=== PATIENT | female | born 1975 | race Hispanic/Latino ===

== ENCOUNTER 2018-02-28 09:52 | Outpatient (CLI) | payer MEDICAID ==
--- NOTE | 2018-02-28 11:51 | ULT ---
RIGHT BREAST ULTRASOUND: Comparison: Mammogram 02-28-18 History: 42-year-old female with palpable mass at the 6 o'clock position of the right breast. Patient reports recently feeling this breast mass. She reports having a family member with a diagnosis of br east cancer. Patient also reports have a previous sebaceous cyst more laterally in the right breast n ear the inframamillary fold. Technique: Multicolor grayscale and color doppler images were obtained in a targeted ultrasound of th e right breast. FINDINGS: At the 6 o'clock position of the right breast in the inframamillary fold approximately 9 cm from the nipple, there is a well circumscribed hypoechoic mass with increased through transmission. Within thi s mass there are increased echoes. This could represent debris or this could represent a solid mass. No definite tract is seen extending to the skin surface during this examination. IMPRESSION: 1. The mass in the right breast most likely represents a sebaceous cyst. However, greater than 98% ce rtainty cannot be given based off the more solid appearance of this and without a tract extending to the skin surface. Therefore, the patient was given the option of short interval follow up or biopsy t o evaluate this mass. She desired a biopsy of the mass. 2. BIRADS category 4 - suspicious abnormality. An ultrasound guided biopsy is recommended. This was d iscussed with the patient at time of ultrasound and with the patient's ordering clinician at 11:07 a. m. on 02-28-18. POS: HERMINIA
== END 2018-02-28 09:53 | disposition home or self-care (01) ==
LOC: BICMAMMO 09:52
PROVIDERS: ATTEND Advanced Practice Midwife
DX: N63.14 Unspecified lump in the right breast, lower inner quadrant (principal)
CPT/HCPCS: 77066; G0279

== ENCOUNTER → 2018-03-08 | Day surgery (SDC) | payer MEDICAID ==
--- NOTE | 2018-03-08 14:07 | ULT ---
FOCUSED ULTRSOUND RIGHT BREAST LIMITED: Date: 03-08-18 Comparison: 02-28-18 History: Subcutaneous palpable abnormality of inferior right breast. FINDINGS: The patient reported for biopsy of a palpable abnormality just deep to the subcutaneous fat on the ri ght at the 12 o'clock position. The preprocedural imaging, however, demonstrates the hypoechoic lesio n to have decreased significantly in size and now demonstrates a more ill-defined nature. It is curre ntly measuring in the 7 x 4 x 3 mm range where it previously measured in the 10 x 8 x 8 mm range. Giv en its interval decrease in size, a biopsy was not performed upon consolation with the patient. Inste ad, a 6 month follow up ultrasound of the right breast is recommended. IMPRESSION: BIRADS 3 - probably benign findings. This lesion is felt to most likely represent a sebaceous cyst an d thus follow up ultrasound is 6 months is advised. POS: OFF
== END ==
LOC: BICULT 12:38
PROVIDERS: ATTEND Advanced Practice Midwife
DX: N64.89 Other specified disorders of breast (principal)

== ENCOUNTER 2019-10-24 07:39 | Emergency (ER) | payer MEDICAID, OTHER, SELFPAY ==
[2019-10-24] MEDS ORDERED: Ketorolac Tromethamine 30 MG/ML VIAL ONE (08:27)
== END 2019-10-24 09:25 | disposition home or self-care (01) ==
LOC: ERS 07:39
DX: S39.012A Strain of muscle, fascia and tendon of lower back, initial encounter (principal); X50.0XXA Overexertion from strenuous movement or load, initial encounter
CPT/HCPCS: 96372; 99283; J1885

== ENCOUNTER 2021-03-20 22:23 | Emergency (ER) | payer SELFPAY ==
[2021-03-21 12:16] LABS: SARS-CoV-2 PCR by NAA DETECTED (NotDetected)
== END 2021-03-21 01:29 | disposition home or self-care (01) ==
LOC: ERS 22:23
DX: U07.1 COVID-19 (principal)
CPT/HCPCS: 71045; U0003; U0005

== ENCOUNTER 2021-12-13 11:24 | Emergency (ER) | payer OTHER ==
[~2021-12-13 11:24] MED LIST: Iopamidol-370 76% 500 ML 1 ML ONE
[2021-12-13 12:43] LABS: #Basophils 0.1 thou/uL (0.0-0.2); #Eosinphils 0.2 thou/uL (0.0-0.7); #Lymphocytes 2.6 thou/uL (1.20-3.40); #Monocytes 0.8 thou/uL (0.11-0.59); #Neutrophils 7.4 thou/uL (1.40-6.50); %Basophils 0.8 % (0.0-1.0); %Eosinophils 1.8 % (0.0-10.0); %Lymphocytes 23.7 % (21.0-51.0); %Monocytes 6.7 % (0.0-10.0); %Neutrophils 66.9 % (42.0-75.0); Hemoglobin 13.5 g/dL (12.0-16.0); Mean Corpuscular HGB CONC 33.1 g/dL (32.0-36.0); Mean Corpuscular Hemoglobin 30.1 pg (27.0-31.0); Mean Corpuscular Volume 91.2 fL (78.0-98.0); Mean Platelet Volume 8.3 fL (7.4-10.4); Platelet Count 245 thou/uL (130-400); Red Blood Cell (RBC) Count 4.49 mill/uL (4.20-5.40); White Blood Cell (WBC) Count 11.1 thou/uL (4.8-10.8)
[2021-12-13 13:09] LABS: ALT (SGPT) 50 U/L (8-55); AST (SGOT) 58 U/L (5-34); Albumin 4.2 g/dL (3.5-5.0); Alkaline Phosphatase 81 U/L (40-110); Anion Gap 12 mmol/L (10-20); BUN (Urea Nitrogen) 11 mg/dL (7.0-18.7); Bilirubin, Total 0.3 mg/dL (0.2-1.2); Calc. Creatinine Clearance 0 mL/min (70-130); Calcium 9.5 mg/dL (7.8-10.44); Carbon Dioxide 25 mmol/L (22-29); Chloride 102 mmol/L (98-107); Estimated GFR 101; Globulin 4.4 g/dL (2.4-3.5); Glucose 116 mg/dL (70-105); Lipase 15 U/L (8-78); Potassium 3.8 mmol/L (3.5-5.1); Protein, Total 8.6 g/dL (6.0-8.3); Sodium 135 mmol/L (136-145)
[2021-12-13 13:44] LABS: BHCG - Serum Negative (NEGATIVE); Pregs Control Background? CLEAR/WHITE (CLR/WHITE); Pregs Control Bar Appear? YES (CONTROL BAR)
[2021-12-13 15:37] LABS: Bacteria/HPF 4+ HPF (None Seen); Bilirubin Negative (Negative); Blood, Urine Negative (Negative); Clarity Turbid (Clear); Glucose, Urine (Dipstick) Normal (Negative); Ketone, Urine Negative (Negative); Leukocyte 500 Leu/uL (Negative); Nitrite Negative (Negative); Protein, Urine (Dipstick) Negative (Neg-Trace); RBC/HPF 0-3 HPF (0-3); WBC/HPF 0-3 HPF (0-3); pH, Urine 6.5 (5.0-9.0)
== END 2021-12-13 16:30 | disposition home or self-care (01) ==
LOC: ERS 11:24
DX: K43.9 Ventral hernia without obstruction or gangrene (principal)
CPT/HCPCS: 36415; 74177; 80053; 81003; 81015; 83690; 84703; 85025; Q9967

== ENCOUNTER 2022-03-30 09:32 | Emergency (ER) | payer OTHER ==
[2022-03-30 10:08] LABS: #Eosinphils 0.1 thou/uL (0.0-0.7); #Lymphocytes 2.4 thou/uL (1.20-3.40); #Monocytes 0.6 thou/uL (0.11-0.59); #Neutrophils 5.6 thou/uL (1.40-6.50); %Basophils 0.5 % (0.0-1.0); %Eosinophils 1.2 % (0.0-10.0); %Lymphocytes 27.6 % (21.0-51.0); %Monocytes 7.2 % (0.0-10.0); %Neutrophils 63.5 % (42.0-75.0); Hemoglobin 13.1 g/dL (12.0-16.0); Mean Corpuscular HGB CONC 33.2 g/dL (32.0-36.0); Mean Corpuscular Hemoglobin 29.6 pg (27.0-31.0); Mean Corpuscular Volume 89.1 fl (78.0-98.0); Mean Platelet Volume 8.1 fL (7.4-10.4); Platelet Count 252 10x3/uL (130-400); RBC Distribution Width 12.4 % (11.5-14.5); Red Blood Cell (RBC) Count 4.43 mill/uL (4.20-5.40); White Blood Cell (WBC) Count 8.9 10x3/uL (4.8-10.8)
[2022-03-30 10:33] LABS: ALT (SGPT) 58 U/L (8-55); AST (SGOT) 64 U/L (5-34); Albumin 4.3 g/dL (3.5-5.0); Alkaline Phosphatase 71 U/L (40-110); Anion Gap 11 mmol/L (10-20); BUN (Urea Nitrogen) 9 mg/dL (7.0-18.7); Bilirubin, Total 0.6 mg/dL (0.2-1.2); Calc. Creatinine Clearance 0 mL/min (70-130); Calcium 9.4 mg/dL (7.8-10.44); Carbon Dioxide 26 mmol/L (22-29); Chloride 102 mmol/L (98-107); Estimated GFR 111; Globulin 3.8 g/dL (2.4-3.5); Glucose 107 mg/dL (70-105); Potassium 4.1 mmol/L (3.5-5.1); Protein, Total 8.1 g/dL (6.0-8.3); Sodium 135 mmol/L (136-145)
[2022-03-30] MEDS ORDERED: Morphine 4 MG/ML VIAL ONE (11:39)
[2022-03-30] MEDS ORDERED: Ondansetron PF 4 MG/2 ML Vial ONE (11:39)
[2022-03-30 13:24] LABS: Bacteria/HPF 2+ HPF (None Seen); Bilirubin Negative (Negative); Blood, Urine Negative (Negative); Clarity Clear (Clear); Glucose, Urine (Dipstick) Normal (Negative); Ketone, Urine 20 mg/dL (Negative); Leukocyte 75 Leu/uL (Negative); Nitrite 2+ (Negative); Protein, Urine (Dipstick) Negative (Neg-Trace); RBC/HPF 0-3 HPF (0-3); Specific Gravity, Urine 1.025 (1.002-1.036); Urobilinogen Normal mg/dL (Less than 2)
== END 2022-03-30 13:21 | disposition home or self-care (01) ==
LOC: ERS 09:32
DX: K43.9 Ventral hernia without obstruction or gangrene (principal)
CPT/HCPCS: 36415; 74177; 80053; 81003; 81015; 83605; 83690; 84484; 84702; 85025; 87077; 87086; 87186; 96361; 96374; 96375; J2270; J2405; Q9967

== ENCOUNTER 2022-04-19 13:13 | Outpatient (CLI) | payer OTHER ==
[2022-04-19 14:23] LABS: #Eosinphils 0.2 10x3/uL (0.0-0.5); #Monocytes 0.6 10x3/uL (0.0-1.1); #Neutrophils 5.9 10x3/uL (1.5-8.4); %Basophils 0.2 % (0.0-2.0); %Eosinophils 1.7 % (0.0-6.0); %Lymphocytes 25.5 % (18.0-47.0); %Monocytes 6.6 % (0.0-10.0); %Neutrophils 65.8 % (40.0-75.0); Hemoglobin 11.8 g/dL (12.0-15.5); Mean Corpuscular HGB CONC 32.8 g/dL (32.0-36.0); Mean Corpuscular Hemoglobin 28.8 pg (27.0-33.0); Mean Corpuscular Volume 87.8 fl (81.6-98.3); Mean Platelet Volume 10.7 fl (7.4-10.4); Platelet Count 239 10x3/uL (150-450); RBC Distribution Width 13.4 % (11.5-14.5)
[2022-04-19 14:37] LABS: Anion Gap 13 mmol/L (10-20); BUN (Urea Nitrogen) 14 mg/dL (7.0-18.7); Calc. Creatinine Clearance 0 mL/min (70-130); Calcium 8.8 mg/dL (7.8-10.44); Carbon Dioxide 24 mmol/L (22-29); Chloride 108 mmol/L (98-107); Estimated GFR 106; Glucose 93 mg/dL (70-105); Potassium 3.5 mmol/L (3.5-5.1); Sodium 141 mmol/L (136-145)
[2022-04-19 14:43] LABS: BHCG - Serum Negative (NEGATIVE); Pregs Control Background? CLEAR/WHITE (CLR/WHITE); Pregs Control Bar Appear? YES (CONTROL BAR)
== END 2022-04-19 13:14 | disposition home or self-care (01) ==
LOC: LABBT 13:13
PROVIDERS: ATTEND Specialist
DX: Z01.812 Encounter for preprocedural laboratory examination (principal); K43.2 Incisional hernia without obstruction or gangrene
CPT/HCPCS: 80048; 84703; 85025

== ENCOUNTER 2022-04-21 08:08 | Day surgery (SDC) | payer OTHER ==
[2022-04-19 11:07] VITALS: BMI 48.6
[2022-04-21] MEDS ORDERED: Acetaminophen 500 MG TAB ONE (08:22)
[2022-04-21] MEDS ORDERED: Ketorolac Tromethamine 30 MG/ML VIAL ONE (08:23)
[2022-04-21] MEDS ORDERED: Lidocaine 1% MPF 2 ML VIAL ONE (08:46)
[2022-04-21] MEDS ORDERED: Midazolam HCl 2 mg/2 ml Vial ONE (09:56)
[2022-04-21] MEDS ORDERED: fentaNYL PF 100 MCG/2 ML SYRINGE ONE (09:57)
[2022-04-21] MEDS ORDERED: Bupivacaine/Epinephrine 0.25% 30 ML VIAL ONE (09:58)
[2022-04-21] MEDS ORDERED: CEFAZOLIN 2 GM VIAL ONE (10:06)
[2022-04-21] MEDS ORDERED: Sodium Chloride 0.9% 100 ML ONE (10:06)
[2022-04-21] MEDS ORDERED: Promethazine HCl 25 MG/ML VIAL ONE ×2 (12:45→13:32)
[2022-04-21] MEDS ORDERED: Morphine 2 MG/ML VIAL ONE (14:25)
[2022-04-21] MEDS ORDERED: HYDROcodone/Acetaminophen 5/325 mg Tablet ONE (15:00)
== END 2022-04-21 15:20 | disposition home or self-care (01) ==
LOC: SDC 08:08
PROVIDERS: ATTEND Specialist
PROC: 0WUF4JZ Supplement Abdominal Wall with Synthetic Substitute, Percutaneous Endoscopic Approach (ICD-10-PCS; principal; 2022-04-21)
PROC: 8E0W4CZ Robotic Assisted Procedure of Trunk Region, Percutaneous Endoscopic Approach (ICD-10-PCS; principal; 2022-04-21)
DX: K43.2 Incisional hernia without obstruction or gangrene (principal); K66.0 Peritoneal adhesions (postprocedural) (postinfection); E66.01 Morbid (severe) obesity due to excess calories; Z68.42 Body mass index [BMI] 45.0-49.9, adult; Z79.899 Other long term (current) drug therapy
CPT/HCPCS: C1713; J1885; J2250; J2272; J2550; J3490

== ENCOUNTER 2023-04-18 17:36 | Emergency (ER) | payer BC, OTHER ==
[2023-04-18] MEDS ORDERED: Ibuprofen 800 MG TAB ONE (18:07)
[2023-04-18] MEDS ORDERED: Dexamethasone 4 MG TAB ONE (18:07)
[2023-04-18 18:43] LABS: #Eosinphils 0.3 thou/uL (0.0-0.7); #Monocytes 0.8 thou/uL (0.11-0.59); #Neutrophils 7.7 thou/uL (1.40-6.50); %Basophils 0.3 % (0.0-1.0); %Eosinophils 2.7 % (0.0-10.0); %Lymphocytes 22.4 % (21.0-51.0); %Monocytes 7.1 % (0.0-10.0); %Neutrophils 67.2 % (42.0-75.0); Hematocrit 35.6 % (36.0-47.0); Hemoglobin 11.7 g/dL (12.0-16.0); Mean Corpuscular HGB CONC 32.9 g/dL (32.0-36.0); Mean Corpuscular Hemoglobin 28.5 pg (27.0-31.0); Mean Corpuscular Volume 86.8 fl (78.0-98.0); Mean Platelet Volume 10.4 fL (7.4-10.4); Platelet Count 242 10x3/uL (130-400); RBC Distribution Width 14.3 % (11.5-14.5); White Blood Cell (WBC) Count 11.4 10x3/uL (4.8-10.8)
[2023-04-18 19:06] LABS: ALT (SGPT) 20 U/L (8-55); AST (SGOT) 17 U/L (5-34); Albumin 3.8 g/dL (3.5-5.0); Alkaline Phosphatase 93 U/L (40-110); Anion Gap 10 mmol/L (10-20); BUN (Urea Nitrogen) 19 mg/dL (7.0-18.7); Bilirubin, Total 0.2 mg/dL (0.2-1.2); Calc. Creatinine Clearance 0 mL/min (70-130); Calcium 8.6 mg/dL (7.8-10.44); Carbon Dioxide 23 mmol/L (22-29); Chloride 108 mmol/L (98-107); Estimated GFR 109; Globulin 3.4 g/dL (2.4-3.5); Glucose 133 mg/dL (70-105); Lipase 16 U/L (8-78); Protein, Total 7.2 g/dL (6.0-8.3); Sodium 137 mmol/L (136-145)
[2023-04-18 19:17] LABS: Troponin I Less than 0.010 ng/mL (< 0.028)
[2023-04-18 19:18] LABS: SARS-CoV-2 NAA Rapid Test Not Detected (NotDetected)
== END 2023-04-18 20:36 | disposition home or self-care (01) ==
LOC: ERS 17:36
DX: J06.9 Acute upper respiratory infection, unspecified (principal); R07.9 Chest pain, unspecified
CPT/HCPCS: 36415; 71045; 80053; 83690; 84484; 85025; 85379; 93005; J8540

== ENCOUNTER 2024-01-10 14:30 | Emergency (ER) | payer BC ==
[2024-01-10] MEDS ORDERED: Metoclopramide HCl 10 MG (2 mL) VIAL ONE (15:50)
[2024-01-10 17:33] LABS: #Basophils 0.03 10x3/uL (0.0-0.2); %Basophils 0.3 % (0.0-1.0); %Eosinophils 2.1 % (0.0-10.0); %Lymphocytes 27.2 % (21.0-51.0); %Monocytes 6.1 % (0.0-10.0); %Neutrophils 63.9 % (42.0-75.0); Hematocrit 37.2 % (36.0-47.0); Hemoglobin 11.7 g/dL (12.0-16.0); Mean Corpuscular HGB CONC 31.5 g/dL (32.0-36.0); Mean Corpuscular Hemoglobin 28.2 pg (27.0-31.0); Mean Corpuscular Volume 89.6 fL (78.0-98.0); Mean Platelet Volume 10.5 fL (7.4-10.4); Platelet Count 248 10x3/uL (130-400); RBC Distribution Width 13.7 % (11.5-14.5); Red Blood Cell (RBC) Count 4.15 mill/uL (4.20-5.40)
[2024-01-10 17:49] LABS: ALT (SGPT) 60 U/L (8-55); AST (SGOT) 61 U/L (5-34); Albumin 3.7 g/dL (3.5-5.0); Alkaline Phosphatase 80 U/L (40-110); Anion Gap 11 mmol/L (10-20); BUN (Urea Nitrogen) 12 mg/dL (7.0-18.7); Bilirubin, Total 0.4 mg/dL (0.2-1.2); Calc. Creatinine Clearance 0 mL/min (70-130); Carbon Dioxide 26 mmol/L (22-29); Chloride 105 mmol/L (98-107); Estimated GFR 111; Globulin 4.2 g/dL (2.4-3.5); Glucose 102 mg/dL (70-105); Magnesium 1.9 mg/dL (1.6-2.6); Potassium 3.6 mmol/L (3.5-5.1); Protein, Total 7.9 g/dL (6.0-8.3); Sodium 138 mmol/L (136-145)
[2024-01-10 18:12] LABS: Pregnancy Test - Urine (BHCG) Negative (Negative); Pregu Control Background? CLEAR/WHITE (CLR/WHITE); Pregu Control Bar Appear? YES (CONTROL BAR)
[2024-01-10 18:13] LABS: Specific Gravity 1.031 (1.002-1.036)
== END 2024-01-10 18:55 | disposition home or self-care (01) ==
LOC: ERS 14:30
DX: R51.9 Headache, unspecified (principal); R74.01 Elevation of levels of liver transaminase levels; E66.9 Obesity, unspecified
CPT/HCPCS: 36415; 70450; 80053; 81025; 83735; 85025; 93005; 96374; J2765

== ENCOUNTER 2024-11-06 08:58 | Emergency (ER) | payer BC ==
[2024-11-06] MEDS ORDERED: Acetaminophen/Codeine 30-300mg Tablet ONE (10:06)
[2024-11-06] MEDS ORDERED: Cyclobenzaprine 10 MG TAB ONE (10:06)
== END 2024-11-06 10:22 | disposition home or self-care (01) ==
LOC: ERS 08:58
DX: M54.16 Radiculopathy, lumbar region (principal)
CPT/HCPCS: 99282